=== PATIENT | male | born 1990 | race American Indian/Alaskan Native ===

== ENCOUNTER 2023-09-27 19:54 | Emergency (ER) | payer MEDICAID | END 2023-09-27 23:34 | disposition home or self-care (01) | LOC: MW.ED 19:54 | DX: M25.532 Pain in left wrist (principal); F17.210 Nicotine dependence, cigarettes, uncomplicated | CPT/HCPCS: 73090-26-LT; 73090-LT; 73110-26-LT; 73110-LT; 99283 ==

== ENCOUNTER 2023-11-03 17:30 | Emergency (ER) | payer SELFPAY | END 2023-11-03 18:11 | disposition home or self-care (01) | LOC: MW.ED 17:30 | DX: B35.3 Tinea pedis (principal); B35.1 Tinea unguium | CPT/HCPCS: 99282; 99283 ==

== ENCOUNTER 2023-12-05 22:04 | Emergency (ER) | payer SELFPAY | END 2023-12-05 22:37 | disposition home or self-care (01) | LOC: MW.ED 22:04 | DX: R10.2 Pelvic and perineal pain (principal) | CPT/HCPCS: 99282; 99283 ==